=== PATIENT | female | born 1965 | race American Indian/Alaskan Native ===

== ENCOUNTER 2016-12-23 05:30 | Emergency (ER) | payer BC ==
[2016-12-23] MEDS ORDERED: NACL 0.9% 1000 ML 1,000 ML IV ONE (05:41)
[2016-12-23 06:26] LABS: Basophils % (Auto) 0.2 % (0.0-1.8); Hematocrit 37.9 % (30.3-42.9); Hemoglobin 12.1 gm/dl (10.1-14.3); Mean Corpuscular HGB Conc 32 % (30-34); Mean Corpuscular Hemoglobin 27 pg (28-32); Mean Corpuscular Volume 84 fl (79-97); Platelet Count 344 K/mm3 (140-440); Red Blood Count 4.52 M/mm3 (3.65-5.03); Red Cell Distribution Width 15.6 % (13.2-15.2); White Blood Count 10.8 K/mm3 (4.5-11.0)
[2016-12-23 06:32] LABS: Alanine Aminotransferase 17 units/L (7-56); Albumin 4.3 g/dL (3.9-5); Alkaline Phosphatase 88 units/L (35-129); Anion Gap 21 mmol/L; Blood Urea Nitrogen 13 mg/dL (7-17); Calcium 9.6 mg/dL (8.4-10.2); Carbon Dioxide 22 mmol/L (22-30); Chloride 96.2 mmol/L (98-107); Glucose 160 mg/dL (65-100); INR 0.95 (0.87-1.13); Lipase 23 units/L (13-60); Potassium 3.5 mmol/L (3.6-5.0); Sodium 136 mmol/L (137-145); Total Protein 8.6 g/dL (6.3-8.2)
[2016-12-23 06:33] LABS: Partial Thromboplastin Time 25.2 Sec. (24.2-36.6)
[2016-12-23 07:44] LABS: Bilirubin,Urine NEG (Negative); Blood,Urine NEG (Negative); Ketones,Urine TR mg/dL (Negative); Leukocyte Esterase,Urine NEG (Negative); Mucus,Urine FEW /HPF; Nitrite,Urine NEG (Negative); Urobilinogen,Urine < 2.0 mg/dL (<2.0)
[2016-12-23 08:22] LABS: Bacteria,Urine 1+ /HPF (Negative)
[2016-12-23] MEDS ORDERED: MORPHINE IV ONE (10:22)
[2016-12-23] MEDS ORDERED: PEPCID IV ONE (10:23)
--- NOTE | 2016-12-23 10:29 | Emergency Department Report ---
HPI - General Chief Complaint: Abdominal Pain Time Seen by Provider: 12/23/16 10:08 - HPI HPI: This is a 51-year-old Afro-[place] female presents to the emergency department with a complaint of abdominal pain since about 7 PM last night. At first it was midabdominal pain but since this morning and has been in the upper abdomen. Associated with some nausea and vomiting patient says that at about 3 AM she had vomiting with some blood tinged in it. She tried some Gas-X and Advil for her symptoms without any relief. She has a past medical history of hypertension for which she takes lisinopril. Her primary care physician is Dr. Corey Mcnamara. Recent travel or sick contacts at home. ED Past Medical Hx - Past Medical History Previous Medical History?: Yes Hx Hypertension: Yes - Surgical History Past Surgical History?: Yes Additional Surgical History: x1 - Social History Smoking Status: Never Smoker - Medications Home Medications: Home Medications Medication Instructions Recorded Confirmed Last Taken Type HYDROcodone/APAP 5-325 [[place] 1 each PO Q6HR PRN #12 tablet 12/23/16 Unknown Rx 5/325] Ondansetron [Zofran Odt] 4 mg PO Q8H PRN #10 tab.rapdis 12/23/16 Unknown Rx ED Review of Systems ROS: Stated complaint: ABD PAIN /VOMITING BLOOD Other details as noted in HPI Comment: All other systems reviewed and negative Constitutional: denies: chills, fever Eyes: denies: eye pain, eye discharge, vision change ENT: denies: ear pain, throat pain Respiratory: denies: cough, shortness of breath, wheezing Cardiovascular: denies: chest pain, palpitations Gastrointestinal: abdominal pain, nausea, vomiting, hematemesis Genitourinary: denies: urgency, dysuria, discharge Musculoskeletal: denies: back pain, joint swelling, arthralgia Skin: denies: rash, lesions Neurological: denies: headache, weakness, paresthesias Physical Exam - Physical Exam Vital Signs: Vital Signs 12/23/16 12/23/16 12/23/16 05:36 09:19 09:30 Temperature 98.2 F Pulse Rate 92 H Respiratory 18 Rate Blood Pressure 144/95 167/93 167/93 Blood Pressure [Left] O2 Sat by Pulse 100 99 Oximetry 12/23/16 09:33 Temperature Pulse Rate 79 Respiratory 16 Rate Blood Pressure Blood Pressure 167/93 [Left] O2 Sat by Pulse 97 Oximetry Physical Exam: GENERAL: The patient is well-developed well-nourished. HEENT: Normocephalic. Atraumatic. Extraocular motions are intact. Patient has moist mucous membranes. Pupils equal reactive to light bilaterally. NECK: Supple. Trachea is midline. CHEST/LUNGS: Clear to auscultation. There is no respiratory distress noted. HEART/CARDIOVASCULAR: Regular. There is no tachycardia. There is no gallop rub or murmur. ABDOMEN: Abdomen is soft. Tenderness to palpation to the upper quadrants of the abdomen. No guarding rebound tenderness. Patient has normal bowel sounds. There is no abdominal distention. SKIN: Skin is warm and dry. NEURO: The patient is awake, alert, and oriented. The patient is cooperative. The patient has no focal neurologic deficits. The patient has normal speech. MUSCULOSKELETAL: There is no tenderness or deformity. There is no limitation range of motion. There is no evidence of acute injury. ED Course Vital Signs 12/23/16 12/23/16 12/23/16 05:36 09:19 09:30 Temperature 98.2 F Pulse Rate 92 H Respiratory 18 Rate Blood Pressure 144/95 167/93 167/93 Blood Pressure [Left] O2 Sat by Pulse 100 99 Oximetry 12/23/16 09:33 Temperature Pulse Rate 79 Respiratory 16 Rate Blood Pressure Blood Pressure 167/93 [Left] O2 Sat by Pulse 97 Oximetry ED Medical Decision Making - Lab Data Result diagrams: 12/23/16 05:53 12/23/16 05:53 - Radiology Data Radiology results: report reviewed, image reviewed interpreted by me: Abdominal x-ray shows nonobstructive nonspecific bowel gas. Upper abdominal ultrasound shows cholelithiasis without cholecystitis. - Medical Decision Making 51-year-old female presents with mid upper abdominal pain along with some nausea and vomiting. Labs are mostly unremarkable. She is tender to palpation in the epigastric and right upper quadrant region of the abdomen on examination. Abdominal x-ray does not show any acute process. Ultrasound shows cholelithiasis without cholecystitis. Patient was given pain medication and upon reevaluation she is feeling improved. Discharged home with pain medication and referrals for general surgery. She will return to the ER for any worsening of her symptoms or any acute distress. - Differential Diagnosis cholelithiasis, cholecystitis, pancreatitis, gastritis Critical Care Time: No Critical care attestation.: If time is entered above; I have spent that time in minutes in the direct care of this critically ill patient, excluding procedure time. ED Disposition Clinical Impression: Biliary colic Abdominal pain Qualifiers: Abdominal location: upper abdomen, unspecified Qualified Code(s): R10.10 - Upper abdominal pain, unspecified Nausea & vomiting Qualifiers: Vomiting type: unspecified Vomiting Intractability: non-intractable Qualified Code(s): R11.2 - Nausea with vomiting, unspecified Cholelithiasis Qualifiers: Cholelithiasis location: gallbladder Cholecystitis presence: without cholecystitis Biliary obstruction: without biliary obstruction Qualified Code(s) : K80.20 - Calculus of gallbladder without cholecystitis without obstruction Hypertension Qualifiers: Hypertension type: essential hypertension Qualified Code(s): I10 - Essential ( primary) hypertension Disposition: TO HOME OR SELFCARE Is pt being admited?: No Condition: Stable Instructions: Biliary Colic (ED), Abdominal Pain (ED), Hypertension (ED) Additional Instructions: Please follow-up with your primary care physician in the next few days. I referral for a local surgeon, Dr. Quiroz, in case she wanted to establish care and discuss outpatient removal of the gallbladder. Return to the emergency department with any worsening of your symptoms or any acute distress. Try to stay away from foods that are greasy, fatty or spicy so that your gallbladder does not contract and cause worsening pain. Try to stay away from foods that are high in salt and caffeinated products to help with your blood pressure. You've been prescribed a medication that is sedating. Therefore this medication cannot be mixed with alcohol, or taken prior to driving, working, or being responsible for children. Prescriptions: HYDROcodone/APAP 5-325 [[place] 5/325] 1 each PO Q6HR PRN #12 tablet PRN Reason: Pain Ondansetron [Zofran Odt] 4 mg PO Q8H PRN #10 tab.rapdis PRN Reason: Nausea Referrals: BARBY MCNAMARA MD [Primary Care Provider] - 3-5 Days RADHA QUIROZ MD [Staff Physician] - 3-5 Days Time of Disposition: 13:19
--- NOTE | 2016-12-23 10:49 | XRay Report ---
Supine and upright views of the abdomen: Abdominal pain. This unremarkable distribution of bowel gas. No dilatation noted. No free air no abdominal mass. There is a faint rim of circular density just medial to the lower liver measuring 2.2 cm in size. This is only identified in the supine view. No other significant findings. Impression: Unexplained right density described above. Possibilities might include a gallstone or calcification in the kidney.
[2016-12-23] MEDS ORDERED: ZOFRAN IV ONE (11:41)
[2016-12-23] MEDS ORDERED: DILAUDID IV ONE (11:42)
--- NOTE | 2016-12-23 13:05 | Ultrasound Report ---
Limited abdominal ultrasound: Right upper quadrant pain. Images of the liver and pancreas are echogenically unremarkable. The gallbladder contains a shadowing calculi which appear to be as large as 2 cm. The gallbladder wall does not appear thick and there is no pericholecystic fluid. The CBD diameter is 3.2 mm. The right renal length is 9.8 cm and the kidney is echogenically unremarkable. The transverse diameter of the proximal abdominal aorta is 2.1 cm. Impressions: Cholelithiasis.
[2016-12-23 13:31] VITALS: BP 153/85
== END 2016-12-23 13:32 | disposition home or self-care (01) ==
LOC: ED 05:30
DX: K80.20 Calculus of gallbladder without cholecystitis without obstruction (principal); K80.50 Calculus of bile duct without cholangitis or cholecystitis without obstruction; I10 Essential (primary) hypertension
CPT/HCPCS: 36415; 74020; 76705; 80053; 81001; 81025; 83690; 85025; 85610; 85730; 86850; 86900; 86901; 93005; 93010; 96361; 96374; 96375; 99285; J1170; J2270; J2405; J7030

== ENCOUNTER 2017-01-08 18:26 | Emergency (ER) | payer BC ==
[2017-01-08 20:10] LABS: Basophils % (Auto) 0.3 % (0.0-1.8); Eosinophils % (Auto) 0.1 % (0.0-4.3); Hematocrit 38.9 % (30.3-42.9); Hemoglobin 12.2 gm/dl (10.1-14.3); Mean Corpuscular HGB Conc 31 % (30-34); Mean Corpuscular Hemoglobin 26 pg (28-32); Mean Corpuscular Volume 84 fl (79-97); Platelet Count 421 K/mm3 (140-440); Red Blood Count 4.66 M/mm3 (3.65-5.03); White Blood Count 7.9 K/mm3 (4.5-11.0)
[2017-01-08 20:26] LABS: Alanine Aminotransferase 36 units/L (7-56); Albumin 4.8 g/dL (3.9-5); Albumin/Globulin Ratio 1.2 %; Alkaline Phosphatase 105 units/L (35-129); Anion Gap 23 mmol/L; BUN/Creatinine Ratio 12.22; Blood Urea Nitrogen 11 mg/dL (7-17); Calcium 10.2 mg/dL (8.4-10.2); Carbon Dioxide 23 mmol/L (22-30); Chloride 95.8 mmol/L (98-107); Glucose 132 mg/dL (65-100); Lipase 23 units/L (13-60); Potassium 3.7 mmol/L (3.6-5.0); Sodium 138 mmol/L (137-145); Total Protein 8.8 g/dL (6.3-8.2)
[2017-01-08 23:29] LABS: Bacteria,Urine 1+ /HPF (Negative); Bilirubin,Urine NEG (Negative); Blood,Urine NEG (Negative); Ketones,Urine TR mg/dL (Negative); Leukocyte Esterase,Urine TR (Negative); Mucus,Urine FEW /HPF; Nitrite,Urine NEG (Negative); Urobilinogen,Urine < 2.0 mg/dL (<2.0)
[2017-01-08 23:59] VITALS: BP 155/91
[2017-01-09] MEDS ORDERED: MORPHINE IV ONE ×2 (00:02→02:25)
[2017-01-09] MEDS ORDERED: NACL 0.9% 1000 ML 1,000 ML IV ONE (00:02)
[2017-01-09] MEDS ORDERED: ZOFRAN IV ONE (00:02)
--- NOTE | 2017-01-09 00:08 | Emergency Department Report ---
ED Abdominal Pain HPI - General Chief Complaint: Abdominal Pain Stated Complaint: ABD PAIN/VOMITING Time Seen by Provider: 01/08/17 23:56 Source: patient Mode of arrival: Ambulatory Limitations: No Limitations - History of Present Illness Initial Comments: 51 years old female coming with right upper quadrant pain and has been going on for 2-3 days. Associated with his nausea vomiting no fever no diarrhea. Patient was seen here last month diagnosed his gallbladder stones advised to follow up with her surgeon she had an appointment with a surgeon on the January 25. Patient stated that her pain just got worse. MD Complaint: abdominal pain Severity scale (0 -10): 0 - Related Data Previous Rx's Medication Instructions Recorded Last Taken Type HYDROcodone/APAP 5-325 [[place] 1 each PO Q6HR PRN #12 tablet 12/23/16 Unknown Rx 5/325] Ondansetron [Zofran Odt] 4 mg PO Q8H PRN #10 tab.rapdis 12/23/16 Unknown Rx Ondansetron [Zofran Odt] 4 mg PO Q8HR PRN #14 tab.rapdis 01/09/17 Unknown Rx oxyCODONE /ACETAMINOPHEN [Percocet 1 tab PO Q6HR PRN #14 tablet 01/09/17 Unknown Rx 5/325] Allergies Allergy/AdvReac Type Severity Reaction Status Date / Time No Known Allergies Allergy Verified 12/23/16 05:41 ED Review of Systems ROS: Stated complaint: ABD PAIN/VOMITING Other details as noted in HPI Constitutional: denies: chills, fever Gastrointestinal: abdominal pain, nausea, vomiting Genitourinary: denies: urgency, dysuria, frequency Neurological: denies: headache, numbness ED Past Medical Hx - Past Medical History Hx Hypertension: Yes - Surgical History Additional Surgical History: x1 - Social History Smoking Status: Never Smoker Substance Use Type: None - Medications Home Medications: Home Medications Medication Instructions Recorded Confirmed Last Taken Type HYDROcodone/APAP 5-325 [[place] 1 each PO Q6HR PRN #12 tablet 12/23/16 01/09/17 Unknown Rx 5/325] Ondansetron [Zofran Odt] 4 mg PO Q8H PRN #10 tab.rapdis 12/23/16 01/09/17 Unknown Rx Ondansetron [Zofran Odt] 4 mg PO Q8HR PRN #14 tab.rapdis 01/09/17 Unknown Rx oxyCODONE /ACETAMINOPHEN [Percocet 1 tab PO Q6HR PRN #14 tablet 01/09/17 Unknown Rx 5/325] ED Physical Exam - General Limitations: No Limitations General appearance: alert, in no apparent distress, other (moderately dehydrated ) - Head Head exam: Present: normocephalic - ENT ENT exam: Present: normal exam - Neck Neck exam: Present: normal inspection - Respiratory Respiratory exam: Present: normal lung sounds bilaterally. Absent: respiratory distress, wheezes, rales, rhonchi, stridor, chest wall tenderness, accessory muscle use, decreased breath sounds, prolonged expiratory - Cardiovascular Cardiovascular Exam: Present: regular rate, normal rhythm, normal heart sounds - GI/Abdominal GI/Abdominal exam: Present: soft, tenderness (right upper quadrant). Absent: distended, guarding, rebound, rigid, normal bowel sounds, mass, bruit, pulsatile mass - Extremities Exam Extremities exam: Present: normal inspection - Back Exam Back exam: Present: normal inspection. Absent: CVA tenderness (R), CVA tenderness (L) - Neurological Exam Neurological exam: Present: alert, oriented X3, CN II-XII intact - Skin Skin exam: Present: warm, normal color ED Course Vital Signs 01/08/17 01/08/17 01/08/17 19:40 22:57 23:57 Temperature 98.6 F 97.6 F 99.4 F Pulse Rate 79 77 88 Respiratory 16 20 18 Rate Blood Pressure 159/97 153/103 Blood Pressure 155/91 [Left] O2 Sat by Pulse 100 100 100 Oximetry - Reevaluation(s) Reevaluation #1: 01/09/17 02:25 Patient stated that she is feeling better. Repeated gallbladder ultrasound was no significant change and no evidence of acute cholecystitis. Advised patient to follow up with her surgeon as soon as possible for an elective cholecystectomy. ED Medical Decision Making - Lab Data Result diagrams: 01/08/17 19:47 01/08/17 19:47 Critical care attestation.: If time is entered above; I have spent that time in minutes in the direct care of this critically ill patient, excluding procedure time. ED Disposition Clinical Impression: Abdominal pain, Gall bladder stones Disposition: DC- TO HOME OR SELFCARE Is pt being admited?: No Does the pt Need Aspirin: No Condition: Stable Instructions: Abdominal Pain (ED), Biliary Colic (ED) Referrals: PRIMARY CARE, [Primary Care Provider] - 3-5 Days
--- NOTE | 2017-01-09 01:09 | Ultrasound Report ---
FINAL REPORT PROCEDURE: US ABDOMEN LIMITED TECHNIQUE: Real-time sonography in multiple planes of the gallbladder fossa and CBD with imaging of the adjacent liver, pancreas, and right kidney was performed with image documentation. CPT 32672 HISTORY: RUQ PAIN, H/O GALL STONES COMPARISON: No prior studies are available for comparison. FINDINGS: Liver: Normal size and echotexture with no evidence of cystic or solid mass lesion. Gallbladder: There are gallstones. The gallbladder wall is thickened at 5.2 millimeters. There is no pericholecystic fluid.. Intrahepatic bile ducts: Normal . Extrahepatic bile ducts: Common bile duct measures 4.9 millimeters.. Pancreas: Normal as visualized with suboptimal depiction of the pancreatic tail. Right kidney: Normal echotexture. No focal renal mass, calculus, or hydronephrosis. Other: No free fluid. IMPRESSION: There is cholelithiasis. The gallbladder wall is thickened. There is no pericholecystic fluid. There is no biliary ductal dilatation.
== END 2017-01-09 02:59 | disposition home or self-care (01) ==
LOC: ED 18:26
DX: K80.50 Calculus of bile duct without cholangitis or cholecystitis without obstruction (principal); I10 Essential (primary) hypertension
CPT/HCPCS: 36415; 76705; 80053; 81001; 81025; 83690; 85025; 96361; 96374; 96375; 96376; 99284; J2270; J2405; J7030